=== PATIENT | female | born 1940 | race American Indian/Alaskan Native ===

== ENCOUNTER → 2017-07-26 | Outpatient (CLI) | payer MEDICARE, OTHER, MEDICAID ==
[~2017-07-26] MED LIST: AMOX500T10 PO; CHOL200022 PO; ESCI20TA8 PO; FLU180SY9 IM; LAN30PT PO; LOVA20TA99 PO; METF-410 PO; PNEU0.5D3 IM; RANI150C17 PO; VENL150C3 PO
--- NOTE | 2017-07-26 11:52 | RADIOLOGY IMAGING REPORT ---
[place] [facility] [place] NAME: Jody Valdez : 1940 MR: [id number] V: [id number] EXAM DATE: ORDERING PHYSICIAN: RIMMA BORRERO TECHNOLOGIST: Location: [facility] Patient: Jody Valdez : 1940 Visit/Account:[id number] Date of Sevice: 07/26/2017 DEXA Scan Clinical history: Osteopenia. Comparison: None available. LUMBAR SPINE: The bone mineral density (BMD) measured from L1-L4 correlates with a Z-score 0.6 and a T-score of min us 1.6 which is osteopenia as defined by the World Health Organization. The corresponding risk of fr acture in the lumbar spine is 3-4 times increased compared with a young adult reference population. HIP: Bone mineral density (BMD) measured in the Left total hip region correlates with a Z-score 0.1 and a T-score of -1.9 which is osteopenia as defined by the World Health Organization. The corresponding r isk of fracture in the hip is 3-4 times increased compared with a young adult reference population. T score left femoral neck -1.8 Bone mineral density (BMD) measured in the Femoral Neck region measures 0.785 g/cm2. Impression: 1. Lumbar spine: Osteopenia. 2. Left Hip: Osteopenia. 3. Femoral Neck: Bone Mineral Density is 0.785 g/cm2 The next DEXA scan of this patient should include the following sites: L1-L4 and the left hip. FRAX? WHO Fracture Risk Assessment Tool link: <http://www.shef.ac.uk/FRAX/tool.jsp?[email or web address]> PLEASE NOTE: 1) The World Health Organization defines low BMD as follows: T-score Normal > -1 Osteopenia < -1 and > -2.5 Osteoporosis < -2.5 without fractures Established osteoporosis < -2.5 with fractures 2) In general, you may wish to consider: Diagnosis Treatment Follow-up DEXA Normal BMD Prevention 2-3 years Osteopenia Prevention/therapy 1-2 years Osteoporosis Therapy Yearly 3) Fracture risk estimated from the T-score is more accurate for vertebral fractures (often spontane ous) than for hip fractures. Report Dictated By: Amber Camacho MD at 07/26/2017 11:46 AM Report E-Signed By: Amber Camacho MD at 07/26/2017 11:48 AM WSN:[email or web address]
== END ==
LOC: RAD 03:00
PROVIDERS: ATTEND Family Medicine
DX: M85.89 Other specified disorders of bone density and structure, multiple sites (principal)
CPT/HCPCS: 77080

== ENCOUNTER → 2018-03-27 | Outpatient (CLI) | payer MEDICARE, OTHER, MEDICAID ==
[~2018-03-27] MED LIST changes: -METF-410 PO; +METF-411 PO; +OMEP-125 PO; +VENL75CA4 PO
[2018-03-27 16:31] LABS: PLATELET COUNT, AUTOMATED 291 K/uL (150-450)
== END ==
LOC: LAB 16:20
PROVIDERS: ATTEND Family Medicine
DX: E11.9 Type 2 diabetes mellitus without complications (principal); E78.5 Hyperlipidemia, unspecified; F32.9 Major depressive disorder, single episode, unspecified
CPT/HCPCS: 36415; 82040; 82247; 82310; 82374; 82435; 82565; 82947; 83036; 84075; 84132; 84155; 84295; 84450; 84460; 84520; 85025

== ENCOUNTER → 2018-09-26 | Outpatient (CLI) | payer MEDICARE, MEDICAID ==
[~2018-09-26] MED LIST changes: +CHOL200018 PO; -CHOL200022 PO; +FLU180SY11 IM; -METF-411 PO; +METF-450 PO; +PNEI IM
== END ==
LOC: LAB 15:32
PROVIDERS: ATTEND Family Medicine
DX: E11.9 Type 2 diabetes mellitus without complications (principal)
CPT/HCPCS: 36415; 82040; 82247; 82310; 82374; 82435; 82565; 82947; 83036; 84075; 84132; 84155; 84295; 84450; 84460; 84520